=== PATIENT | female | born 1990 | race Two or more races ===

== ENCOUNTER 2018-03-31 19:56 | Emergency (ER) | payer OTHER ==
[2018-03-31] MEDS: IBUPROFEN 800 MG TABLET. PO (21:17)
[2018-03-31] MEDS: ACETAMINOPHEN 500 MG TABLET PO (21:17)
[2018-03-31] MEDS: silver sulfADIAZINE 1% CREAM 25GM TUBE. TP (21:17)
== END 2018-03-31 21:57 | disposition home or self-care (01) ==
LOC: ER 19:56
DX: T22.111A Burn of first degree of right forearm, initial encounter (principal); T31.0 Burns involving less than 10% of body surface; Z88.6 Allergy status to analgesic agent; Z88.5 Allergy status to narcotic agent; X15.2XXA Contact with hotplate, initial encounter; Y93.89 Activity, other specified; Y99.8 Other external cause status; Y92.89 Other specified places as the place of occurrence of the external cause
CPT/HCPCS: 16020; 99284-25